=== PATIENT | male | born 1955 | race Caucasian/White ===

== ENCOUNTER 2024-04-17 06:20 | Day surgery (SDC) | payer MEDICARE, OTHER ==
[~2024-04-17] VITALS: Ht 177.8 cm; Wt 85.1 kg
[~2024-04-17 06:20] MED LIST: FLOVENT DISKU250 MCG INH; FLUTICASONE PRO16 GM NS; MIDAZOLAM HCL 5 MG/5 ML VIAL IV PRN; PREVACID15 MG PO; PROAIR RESPICL90 MCG IH; fentaNYL citrate 100 MCG/2 ML VIAL IV PRN
[2024-04-17 06:39] VITALS: BP 146/74
[2024-04-17] MEDS ORDERED: MIDAZOLAM HCL 5 MG/5 ML VIAL ONE (06:43)
[2024-04-17] MEDS ORDERED: fentaNYL citrate 100 MCG/2 ML VIAL ONE (06:44)
[2024-04-17] MEDS ORDERED: IBLOOD GLUCOSE TEST STRIP 1 EA TEST VI PRN (07:00)
[2024-04-17] MEDS ORDERED: LIDOCAINE HCL 1% 5 ML SDV INJ ONE (07:00)
[2024-04-17] MEDS ORDERED: LACTATED RINGER'S 1,000 ML IV SCH (07:00)
--- NOTE | 2024-04-17 07:49 | NUR ---
PT GONE FOR PROCEDURE. PROVIDED PRAYER.
--- NOTE | 2024-04-17 08:27 | NUR ---
04/17/[address] PRESENTS TO [facility]S BEDSIDE AND IS SPEAKING WITH THE PATIENT.
[2024-04-17 08:46] VITALS: BP 105/66
--- NOTE | 2024-04-18 10:21 | OR ---
[facility] [address] [place], [place] [address] Signed DATE OF OPERATION: 04/17/2024 SURGEON: Nicolette Palmer MD PREOPERATIVE DIAGNOSES: 1. Family history of colon cancer (father). 2. History of adenomatous polyps. POSTOPERATIVE DIAGNOSIS: Two polyps at sigmoid. PROCEDURES: Total colonoscopy to cecum with cold morcellation polypectomy x2. ANESTHESIA: Intravenous sedation; fentanyl 100 mcg and Versed 5 mg. INDICATION: This is a 69-year-old white man, who is a patient of Ry Centeno D.O. of [place], [place]. The patient lives in [place], [place], though notes his legal address to be [place]. He has undergone colonoscopies by me in the past, last in 2019 at which time, he was found to have hyperplastic polyp at 15 cm. He has had adenomatous polyps prior to that. He does have family history of colon cancer in his father. He is admitted at this time to undergo surveillance colonoscopy. He understands the risk of bleeding, infection, and perforation. FINDINGS: The prep was good. Complete colonoscopy was undertaken of the cecum. An area of previous polypectomy with endoscopic tattoo was noted in the left colon. There were two small polyps of the sigmoid, both excised. There were no other findings of concern. DESCRIPTION OF PROCEDURE: The patient was brought to the endoscopy suite and placed in the lateral decubitus position, given intravenous sedation to the point of slurred speech and nystagmus. Digital rectal examination was normal. The Olympus video colonoscope was passed in the rectum and manipulated throughout the colon ultimately intubating the cecum itself. The ileocecal valve and appendiceal orifice were normal. The scope was withdrawn from that point and examination throughout showed no sign of abnormality until the sigmoid where two small polyps were noted, both were excised with cold morcellation technique. The scope was further withdrawn and the rectum appeared normal. The scope was removed and Electronically Signed By: NICOLETTE PALMER MD 04/18/24 1021 PATIENT NAME: ALTAF ROLAND OPERATIVE REPORT DATE OF : 53 REPORT #: [id number] PHYSICIAN: NICOLETTE PALMER MD PCP: RY CENTENO DO REPORT IS CONFIDENTIAL AND NOT TO BE RELEASED WITHOUT AUTHORIZATION [facility] [address] [place] [id number] Signed the patient was taken to the recovery room in good condition. CONCLUDING DIAGNOSIS: Polyps x2. PLAN: Recommend repeat colonoscopy in 3 to 5 years, sooner if symptoms should develop. He should have colonoscopy no further than five years out based on family history of colon cancer in a first-degree relative (father). He will return to the ongoing care of Dr. Ry Centeno in [place], [place]. MD JAMES Cutler/MODL /[id number] cc: Ry Centeno D.O.,[place], [place] Copies: ~ Electronically Signed By: NICOLETTE PALMER MD 04/18/24 1021 PATIENT NAME: ALTAF ROLAND OPERATIVE REPORT DATE OF : 53 REPORT #: [id number] PHYSICIAN: NICOLETTE PALMER MD PCP: RY CENTENO DO REPORT IS CONFIDENTIAL AND NOT TO BE RELEASED WITHOUT AUTHORIZATION
--- NOTE | 2024-04-19 17:30 | PATH ---
[facility] [address] [place] [address] Signed SPECIMEN(S): A COLON BIOPSY AT 35 CM SPECIMEN(S): B COLON BIOPSY AT 35 CM SPECIMEN SOURCE: A. COLON BIOPSY AT 35 CM B. COLON BIOPSY AT 35 CM CLINICAL HISTORY: History of colon polyps, surveillance, family history of colon cancer FINAL PATHOLOGIC DIAGNOSIS: A. Colon at 35 cm, biopsy #1: - Tubular adenoma. - Negative for high-grade dysplasia and malignancy. B. Colon at 35 cm, biopsy #2: - Tubular adenoma. - Negative for high-grade dysplasia and malignancy. SD MICROSCOPIC EXAMINATION: Histologic sections of all submitted blocks are examined by light microscopy. These findings, together with the gross examination, support the pathologic diagnosis. GROSS DESCRIPTION: A. The specimen, labeled and designated "Amy, colon polyp at 35 cm," is received in formalin and consists of one sherwood soft tissue fragment, 0.3 cm. Entirely submitted in (A1). B. The specimen, labeled and designated "Amy, colon polyp at 35 cm, #2," is received in formalin and consists of one sherwood soft tissue fragment, 0.3 cm. Entirely submitted in (B1). VB (under the direct supervision of a pathologist) The Gross Description was prepared using a voice recognition system. The report was reviewed for accuracy; however, sound-alike word errors, addition and/or deletions may occur. If there is any question about this report, please contact Client Services. ADDITIONAL NOTES: Immunohistochemical and/or in situ hybridization studies if performed in this case included appropriate positive controls that reacted as expected. This test was developed and its performance PATIENT NAME: ALTAF ROLAND PATHOLOGY DATE OF : 53 REPORT #: [id number] PHYSICIAN: CATHERINE PISANO PCP: RY CARTER DO REPORT IS CONFIDENTIAL AND NOT TO BE RELEASED WITHOUT AUTHORIZATION [facility] [address] [place], [place] [address] Signed characteristics determined by [facility]. It has not been cleared or approved by the U.S. Food and Drug Administration. The FDA has determined that such clearance or approval is not necessary. This test is used for clinical purposes. It should not be regarded as investigational or for research. [facility] is certified under the Clinical Laboratory Improvement Amendments of 1988 (CLIA) as qualified to perform high complexity clinical laboratory testing. PERFORMING LABORATORY: Technical component was performed by [facility], [address] [place] [id number] (CLIA# [id number]). Professional interpretation was performed by [email or web address], [address] [place] [id number] (CLIA#: [id number]). Diagnostician: Tereza Gutierrez MD Pathologist Electronically Signed 04/19/2024 Copies: ~ PATIENT NAME: ALTAF ROLAND PATHOLOGY DATE OF : 53 REPORT #: [id number] PHYSICIAN: CATHERINE PISANO PCP: RY CARTER DO REPORT IS CONFIDENTIAL AND NOT TO BE RELEASED WITHOUT AUTHORIZATION
== END 2024-04-17 08:55 | disposition home or self-care (01) ==
LOC: OPS 06:20 → DS 06:20 → OPS 07:30 → DS 07:30 → OPS 08:55
PROVIDERS: ATTEND Surgery
PROC: 0DBN8ZZ Excision of Sigmoid Colon, Via Natural or Artificial Opening Endoscopic (ICD-10-PCS; principal; 2024-04-17 07:30)
DX: Z12.11 Encounter for screening for malignant neoplasm of colon (principal); D12.5 Benign neoplasm of sigmoid colon; J45.909 Unspecified asthma, uncomplicated; Z80.0 Family history of malignant neoplasm of digestive organs; Z86.010 Personal history of colon polyps; Z90.49 Acquired absence of other specified parts of digestive tract
CPT/HCPCS: 88305; 99153; G0500; J2250; J3010